=== PATIENT | male | born 1995 | race African-American/Black ===

== ENCOUNTER 2017-11-22 18:01 | Emergency (ER) | payer OTHER ==
[~2017-11-22] VITALS: Ht 175.3 cm; Wt 103.3 kg
[2017-11-22] MEDS ORDERED: MOTRIN600 MG PO (19:21)
[2017-11-22 19:42] VITALS: BP 133/92
== END 2017-11-22 19:42 | disposition home or self-care (01) ==
LOC: RME 18:01 → EME 18:01 → RME 19:42
DX: S00.83XA Contusion of other part of head, initial encounter (principal); Y04.2XXA Assault by strike against or bumped into by another person, initial encounter; Y92.199 Unspecified place in other specified residential institution as the place of occurrence of the external cause; Y99.0 Civilian activity done for income or pay
CPT/HCPCS: 70150; 99281; 99283